=== PATIENT | male | born 1995 | race Hispanic/Latino ===

== ENCOUNTER 2018-01-10 17:06 | Emergency (ER) | payer SELFPAY ==
[2018-01-10 17:27] VITALS: BP 126/83; TEMP 96.8; O2SAT 99
--- NOTE | 2018-01-10 17:31 | ED.PDOC ---
History of Present Illness - General Chief Complaint: Upper Extremity Injury Stated Complaint: right hand pain Time Seen by Provider: 01/10/18 17:31 Source: patient Exam Limitations: no limitations - History of Present Illness Initial Comments: Jignesh Estrada 22 y/o male stated he got mad at home and had punched the wall and other stuff at home that he could get into yesterday.Then a few hours later felt sharp pain /swelling on his right hand afterwards.Had applied ice to the area last night. Occurred: yesterday Pain - Upper Extremity: moderate: Hand, right Method of Injury: direct blow Improving Factors: rest Worsening Factors: movement Associated Symptoms: pain Allergies/Adverse Reactions: Allergies NO KNOWN ALLERGY Allergy (Unverified 08/17/12 14:56) Home Medications: Ambulatory Orders Cephalexin 1,000 mg PO BID #30 cap 01/10/18 Review of Systems - Review of Systems Constitutional: States: no symptoms reported EENTM: States: no symptoms reported Respiratory: States: no symptoms reported Musculoskeletal: States: see HPI Skin: States: see HPI All other Systems: Reviewed and Negative, No Change from Baseline Past Medical History (General) - Patient Medical History Hx Stroke: No Hx Asthma: Yes Hx Congestive Heart Failure: No Hx Diabetes: No Surgical History: appendectomy - Vaccination History Hx Influenza Vaccination: No Immunizations Up to Date: Yes - Social History Hx Tobacco Use: Yes Hx Alcohol Use: Yes - Female History Patient : No Family Medical History - Family History Mother Family History: Unknown Physical Exam - Physical Exam General Appearance: Alert, Comfortable, No apparent distress Eyes, Ears, Nose, Throat Exam: normal ENT inspection Neck: supple Cardiovascular/Respiratory: regular rate, rhythm, normal peripheral pulses, normal breath sounds Abdominal Exam: non-tender Back Exam: normal inspection Shoulder Exam: normal inspection, no evidence of injury Elbow/Forearm Exam: normal inspection, no evidence of injury Wrist Exam: normal inspection, no evidence of injury Hand Exam: bone tenderness - right hand, soft tissue tenderness - right hand, swelling - right hand Neuro/Tendon: normal sensation, normal motor functions, normal tendon functions , responds to pain, no evidence tendon injury Mental Status: alert, oriented x 3 Skin Exam: normal color, warm/dry Progress - Progress Progress: 01/10/18 17:43 Vital Signs - 8 hr 01/10/18 17:24 Temperature 96.8 F L Pulse Rate [ 76 Left Brachial] Respiratory 16 Rate Blood Pressure 126/83 [Left Arm] O2 Sat by Pulse 99 Oximetry - EKG/XRAY/CT XRAY: hand - right no fracture Departure - Departure Clinical Impression: Pain and swelling of right upper extremity Contusion of hand, right Qualifiers: Encounter type: initial encounter Qualified Code(s): S60.221A - Contusion of right hand, initial encounter Time of Disposition: 18:03 Disposition: Discharge to Home or Self Care Condition: Good Departure Forms: ED Discharge - Pt. Copy, Patient Portal Self Enrollment Instructions: DI for Hand Injury Referrals: UNKNOWN,PHYSICIAN [Primary Care Provider] - 1-2 Weeks Prescriptions: Cephalexin 1,000 mg PO BID #30 cap Home Medications: Ambulatory Orders Cephalexin 1,000 mg PO BID #30 cap 01/10/18 Additional Instructions: Return to ER as Needed;May take ALEVE(over the counter) 1-2 tabs am/pm for pain
--- NOTE | 2018-01-10 17:44 | RAD ---
EXAM DESCRIPTION: Hand,Right 3 Views CLINICAL HISTORY: pain and swelling COMPARISON: None Available. TECHNIQUE: AP, LATERAL, AND OBLIQUE FINDINGS: Three-view right hand shows no fracture or dislocation. There is no bone lesion. There are no significant arthritic changes. There is no radiopaque foreign body. IMPRESSION: Negative. Electronically signed by: Mickey Herbert MD 01/10/2018 5:43 PM CDT
[2018-01-10] MEDS: CEPHALEXIN MONOHYDRATE 500 MG CAP PO ONE (18:03)
[2018-01-10] MEDS: IBUPROFEN 200 MG TAB PO ONE (18:03)
[2018-01-10] MEDS: HYDROcodone 5MG/APAP 325MG 1 EA TAB PO ONE (18:04)
== END 2018-01-10 18:16 | disposition home or self-care (01) ==
LOC: ER 17:06
DX: S60.221A Contusion of right hand, initial encounter (principal); J45.909 Unspecified asthma, uncomplicated; Z87.891 Personal history of nicotine dependence; W22.01XA Walked into wall, initial encounter; Y92.9 Unspecified place or not applicable